=== PATIENT | male | born 1990 | race Caucasian/White ===

== ENCOUNTER 2018-04-10 17:22 | Emergency (ER) | payer OTHER ==
[~2018-04-10] VITALS: Ht 175.3 cm; Wt 79.4 kg
[2018-04-10] MEDS ORDERED: IBUPROFEN 800800 MG PO (18:41)
[2018-04-10] MEDS ORDERED: BUTALB-APAP-CA1 EACH PO (18:41)
[2018-04-10 19:14] VITALS: BP 124/74
== END 2018-04-10 19:15 | disposition home or self-care (01) ==
LOC: M.ERS 17:22
DX: G44.209 Tension-type headache, unspecified, not intractable (principal); R11.2 Nausea with vomiting, unspecified